=== PATIENT | male | born 1995 | race African-American/Black ===

== ENCOUNTER 2016-11-26 13:30 | Outpatient (RCR) | payer OTHER ==
[2016-09-02 15:15] VITALS: BP 116/74; PULSE 72; TEMP 97.4
[2016-09-02 16:44] VITALS: BP 123/64; PULSE 71; TEMP 98.2
[2016-09-16 13:41] VITALS: BP 120/66; PULSE 85; TEMP 97.9
[2016-09-30 13:47] VITALS: BP 118/70; PULSE 60; TEMP 97.5
[2016-10-16 13:45] VITALS: BP 137/73; PULSE 84; TEMP 98.2
[2016-10-28 13:24] VITALS: BP 125/65; PULSE 90; TEMP 97.8
[2016-11-12 14:39] VITALS: BP 125/59; PULSE 76; TEMP 98.1
[~2016-11-26] VITALS: Ht 170.2 cm; Wt 70.9 kg
[~2016-11-26 13:30] MED LIST: PROAIR HFA0.09 MG/AC IH; RT ADVAIR HFA 2312 G IH; SPIRIVA RESPIMAT4 GM IH
[2016-11-26 13:45] VITALS: BP 134/65; PULSE 79; TEMP 97.9
== END 2016-12-01 | disposition home or self-care (01) ==
LOC: EUO
DX: R06.09 Other forms of dyspnea (principal)
CPT/HCPCS: J2357

== ENCOUNTER 2017-02-26 13:00 | Outpatient (RCR) | payer OTHER ==
[2016-12-09 15:10] VITALS: BP 121/61; PULSE 72; TEMP 98
[2016-12-23 14:35] VITALS: BP 114/66; PULSE 91; TEMP 97.9
[2017-01-06 14:29] VITALS: BP 137/65; PULSE 87; TEMP 98.3
[2017-01-20 13:52] VITALS: BP 123/67; PULSE 71; TEMP 97.3
[2017-02-03 10:34] VITALS: BP 125/73; PULSE 81; TEMP 98.1
[~2017-02-26] VITALS: Ht 170.2 cm; Wt 68.9 kg
== END 2017-03-09 | disposition home or self-care (01) ==
LOC: EUO
DX: J45.909 Unspecified asthma, uncomplicated (principal); Z79.899 Other long term (current) drug therapy
CPT/HCPCS: J2357

== ENCOUNTER 2017-05-13 14:30 | Outpatient (RCR) | payer OTHER ==
[2017-03-17 13:55] VITALS: BP 119/72; PULSE 82; TEMP 98.5
[2017-04-01 10:01] VITALS: BP 107/55; PULSE 76; TEMP 97.8
[2017-04-20 14:35] VITALS: BP 128/62; PULSE 69; TEMP 98
[2017-05-04 13:06] VITALS: BP 107/55; PULSE 76; TEMP 98.1
[~2017-05-13] VITALS: Ht 170.2 cm; Wt 65.0 kg
== END 2017-06-15 | disposition home or self-care (01) ==
LOC: EUO
DX: J45.40 Moderate persistent asthma, uncomplicated (principal)